=== PATIENT | male | born 1970 | race Caucasian/White ===

== ENCOUNTER → 2016-06-18 | Outpatient (REF) | payer OTHER ==
[2016-06-18 19:20] LABS: ALBUMIN 4.4 GM/DL (3.2-5.2); ALBUMIN/GLOBULIN RATIO 1.42 (1.00-1.93); BILIRUBIN,DIRECT 0.1 MG/DL (0.0-0.2); BILIRUBIN,TOTAL 0.6 MG/DL (0.2-1.0); TOTAL PROTEIN 7.5 GM/DL (6.4-8.2)
== END ==
LOC: M SFHCADAM 15:50
PROVIDERS: ATTEND Physician Assistant Medical
DX: B35.1 Tinea unguium (principal)

== ENCOUNTER → 2016-07-16 | Outpatient (REF) | payer OTHER ==
[2016-07-16 17:39] LABS: ALBUMIN 4.5 GM/DL (3.2-5.2); ALBUMIN/GLOBULIN RATIO 1.41 (1.00-1.93); BILIRUBIN,DIRECT 0.1 MG/DL (0.0-0.2); BILIRUBIN,TOTAL 0.5 MG/DL (0.2-1.0); TOTAL PROTEIN 7.7 GM/DL (6.4-8.2)
== END ==
LOC: M SFHCADAM 15:44
PROVIDERS: ATTEND Physician Assistant Medical
DX: B35.1 Tinea unguium (principal)

== ENCOUNTER 2019-12-08 20:30 | Emergency (ER) | payer OTHER ==
[~2019-12-08] VITALS: Ht 188 cm; Wt 113.6 kg
[2019-12-08 20:31] VITALS: BP 140/77
[2019-12-08] MEDS ORDERED: IBUP-1022 PO (21:27)
[2019-12-08] MEDS ORDERED: PRED20TA PO (21:27)
[2019-12-08] MEDS ORDERED: IBUPROFEN 600MG TAB PO ONE (21:30)
[2019-12-08] MEDS ORDERED: predniSONE 20 MG TAB PO ONE (21:30)
== END 2019-12-08 21:39 | disposition home or self-care (01) ==
LOC: M ED 20:30
DX: S46.911A Strain of unspecified muscle, fascia and tendon at shoulder and upper arm level, right arm, initial encounter (principal); S46.912A Strain of unspecified muscle, fascia and tendon at shoulder and upper arm level, left arm, initial encounter; X58.XXXA Exposure to other specified factors, initial encounter; Y92.9 Unspecified place or not applicable; Y99.9 Unspecified external cause status; Z79.899 Other long term (current) drug therapy; M54.16 Radiculopathy, lumbar region; Y93.9 Activity, unspecified

== ENCOUNTER → 2020-01-30 | Outpatient (REF) | payer OTHER ==
[~2020-01-30] MED LIST: GABA-843; IBUP-1022 PO; MELO15TA28; PERC5TAB12 PO; PRED20TA PO
[2020-01-30 19:22] LABS: HEMATOCRIT 41.9 % (42.0-52.0); HEMOGLOBIN 14.3 g/dl (13.5-17.5); MEAN CORPUSCULAR HEMOGLOBIN 29.5 pg (27.0-33.0); MEAN CORPUSCULAR HGB CONC 34.1 g/dl (32.0-36.5); MEAN CORPUSCULAR VOLUME 86.6 fl (80.0-96.0); PLATELET COUNT, AUTOMATED 172 10^3/uL (150-450); RED BLOOD COUNT 4.84 10^6/uL (4.30-6.10); WHITE BLOOD COUNT 6.2 10^3/uL (4.0-10.0)
[2020-01-30 19:30] LABS: ALT/SGPT 56 U/L (12-78); BILIRUBIN,TOTAL 0.8 MG/DL (0.2-1.0); BLOOD UREA NITROGEN 14 MG/DL (7-18); C REACTIVE PROTEIN QUANTITATIV 1.93 MG/DL (0.00-0.30); CALCIUM LEVEL 8.8 MG/DL (8.5-10.1); CARBON DIOXIDE LEVEL 28 MEQ/L (21-32); CHLORIDE LEVEL 105 MEQ/L (98-107); CREATININE FOR GFR 1.24 MG/DL (0.70-1.30); GLOMERULAR FILTRATION RATE > 60.0 (>56); GLUCOSE, FASTING 86 MG/DL (70-100); RHEUMATOID FACTOR QUANT < 10.0 IU/ML (<15.0); SODIUM LEVEL 138 MEQ/L (136-145); TOTAL PROTEIN 7.2 GM/DL (6.4-8.2)
[2020-02-01 20:07] LABS: ANA (HEP2) Negative (.)
== END ==
LOC: M SFHCADAM 17:49
PROVIDERS: ATTEND Family Medicine
DX: R22.9 Localized swelling, mass and lump, unspecified (principal)

== ENCOUNTER → 2020-02-19 | Outpatient (CLI) | payer OTHER ==
--- NOTE | 2020-02-19 18:35 | REPVR ---
PROCEDURE INFORMATION: Exam: MR Lumbar Spine Without Contrast. Exam date and time: 02/19/2020 5:10 PM Age: 49 years old Clinical indication: Low back pain TECHNIQUE: Imaging protocol: Multiplanar magnetic resonance images of the lumbar spine without intravenous contrast. COMPARISON: No relevant prior studies available. FINDINGS: Vertebral body heights are maintained. Degenerative disc height loss at L4-L5 and L5-S1. No abnormal marrow signal. No evidence of acute fracture. No cord compression. No abnormal cord signal. Conus medullaris terminates at the L1 level. Paravertebral soft tissues are unremarkable. L1-L2: No significant canal or foraminal narrowing. L2-L3: No significant canal or foraminal narrowing. L3-L4: No significant canal or foraminal narrowing. L4-L5: Broad-based disc bulge and facet hypertrophy cause mild canal narrowing and mild bilateral foraminal narrowing. L5-S1: Left paracentral disc extrusion causes mild canal narrowing and effacement of the left lateral recess with compression of the traversing left S1 nerve root. Along with superimposed broad-based disc bulge and facet hypertrophy there is mild left and moderate right foraminal narrowing. IMPRESSION: 1. Left paracentral disc extrusion at L5-S1 causing compression upon the traversing left S1 nerve root. Recommend surgical consultation. 2. Additional spondylotic changes of the lower lumbar spine, as detailed above. Electronically signed by: Rob Adrian On 02/19/2020 18:34:59 PM
== END ==
LOC: M RAD 15:43
PROVIDERS: ATTEND Physician Assistant Medical
DX: M51.26 Other intervertebral disc displacement, lumbar region (principal); R20.2 Paresthesia of skin; M47.816 Spondylosis without myelopathy or radiculopathy, lumbar region

== ENCOUNTER → 2020-02-26 | Outpatient (CLI) | payer OTHER | LOC: M LABSMTC 13:03 | PROVIDERS: ATTEND Anesthesiology | DX: Z01.812 Encounter for preprocedural laboratory examination (principal); Z20.828 Contact with and (suspected) exposure to other viral communicable diseases | CPT/HCPCS: C9803; U0003 ==

== ENCOUNTER 2020-02-28 09:26 | Day surgery (SDC) | payer OTHER ==
[~2020-02-28] VITALS: Ht 188 cm; Wt 112.5 kg
[~2020-02-28 09:26] MED LIST changes: +CelecoXIB 400 MG CAP PO ONE; +LR 1,000 ML IV ONE; -PERC5TAB12 PO; +PERCOCET 5MG/325MG TAB PO ONE; +ceFAZolin SOD 2 GM in IV 1 EA IV ONE
[2020-02-28] MEDS ORDERED: LIDOCAINE 2% 100MG/5ML SDV (FOR ANES.) As Ordered ONE (11:19)
[2020-02-28] MEDS ORDERED: dexameTHASONE 4 MG/ML 1ML VIAL (J1100 PER 1MG) As Ordered ONE (11:19)
[2020-02-28] MEDS ORDERED: propofoL 200 MG/20 ML VIAL As Ordered ONE (11:19)
[2020-02-28] MEDS ORDERED: ONDANSETRON 4MG/2ML VIAL As Ordered ONE (11:19)
[2020-02-28] MEDS ORDERED: ROCURONIUM BROMIDE 50 MG/5 ML VIAL As Ordered ONE ×2 (11:19→13:41)
[2020-02-28] MEDS ORDERED: REMIFENTANIL 1MG 3ML VIAL As Ordered ONE (11:20)
[2020-02-28] MEDS ORDERED: fentaNYL 100 MCG/2 ML INJECTION (J3010) As Ordered ONE (11:20)
[2020-02-28] MEDS ORDERED: MIDAZOLAM INJ 2MG/2ML VIAL (J2250 PER 1MG) As Ordered ONE (11:21)
[2020-02-28] MEDS ORDERED: BUPIVACAINE/EPIN 0.25% 30 ML VIAL As Ordered ONE (12:28)
[2020-02-28] MEDS ORDERED: BACITRACIN PWD 50,000 UNITS VIAL As Ordered ONE (12:29)
[2020-02-28] MEDS ORDERED: BUPIVACAINE LIPOSOME/PF 1.3% 20ML VIAL (13.3MG/ML)(EXPAREL)(C9290 PER1MG) As Ordered ONE (12:29)
[2020-02-28] MEDS ORDERED: BUPIVACAINE HCL 0.25% 10ML VIAL As Ordered ONE (12:29)
[2020-02-28] MEDS ORDERED: THROMBIN SOLN 20,000 UNITS KIT As Ordered ONE (12:29)
[2020-02-28] MEDS ORDERED: GLYCOPYRROLATE INJ 0.2 MG/ML 2 ML VIAL As Ordered ONE (13:26)
[2020-02-28] MEDS ORDERED: HYDROMORPHONE HCL 0.5 MG/ 0.5 ML SYRINGE (J1170 PER 1) IV PRN (15:45)
[2020-02-28] MEDS ORDERED: METOCLOPRAMIDE INJ 10MG/2ML VIAL (J2765 PER 1) IV PRN (15:45)
[2020-02-28] MEDS ORDERED: fentaNYL 100 MCG/2 ML INJECTION (J3010) IV PRN (15:45)
[2020-02-28] MEDS ORDERED: ONDANSETRON 4MG/2ML VIAL IV PRN ×2 (15:45)
[2020-02-28] MEDS ORDERED: PERCOCET 5MG/325MG TAB PO PRN (15:45)
[2020-02-28] MEDS ORDERED: LR 1,000 ML IV SCH ×2 (15:45)
[2020-02-28] MEDS ORDERED: MEPERIDINE INJ 25 MG/ML VIAL (J2175) IV PRN (15:45)
[2020-02-28] MEDS ORDERED: oxyCODONE 5MG TAB PO PRN (15:45)
[2020-02-28 16:00] VITALS: BP 136/86
[2020-02-28 16:30] VITALS: BP 138/86
[2020-02-28] MEDS ORDERED: METAMUCIL (PSYLLIUM) PACKET PO ONE (17:00)
[2020-02-28] MEDS ORDERED: ceFAZolin SOD 2 GM in IV 1 EA IV ONE (17:00)
[2020-02-28 17:30] VITALS: BP 138/84
[2020-02-28] MEDS: PERCOCET 5MG/325MG TAB PO PRN (17:57)
[2020-02-28 18:30] VITALS: BP 136/82
[2020-02-28 22:00] VITALS: BP 130/76
[2020-02-29] MEDS: PERCOCET 5MG/325MG TAB PO PRN (05:33)
[2020-02-29 06:00] VITALS: BP 129/73
[2020-02-29] MEDS ORDERED: PERC5TAB12 PO (06:51)
--- NOTE | 2020-03-02 08:34 | RO ---
DATE OF OPERATION: 02/28/2020 PREOPERATIVE DIAGNOSIS: Left lower extremity radiculopathy secondary to herniated disk at L5/S1 on the left side. POSTOPERATIVE DIAGNOSIS: Left lower extremity radiculopathy secondary to herniated disk at L5/S1 on the left side. PROCEDURE PERFORMED: Microdiskectomy, left L5/S1. SURGEON: Fernando Mallory MD REAL ESTATE VALUER: Miguel Angel Mccord, INGR[place]. ANESTHESIA: General endotracheal. ESTIMATED BLOOD LOSS: Less than 40 ml, replaced with Crystalloid. COMPLICATIONS: No complications. INDICATIONS: Intractable discomfort down the left lower extremity, MRI evidence of a large disk herniation producing significant spinal stenosis. Consent reviewed in detail with the patient, including a julia discussion with pathology involved, procedure proposed, alternatives including doing nothing and risks, including but not limited to pain, failure, instability, need for more surgery, infection, blood clots or some other problems. The patient agrees with surgery. OPERATIVE COURSE: Identified in the holding area, site and site verified, brought to the operating room. Once anesthesia was administered, positioned on the Antoine frame for exposure of the lumbar spine. Once I and the hemodialysis technician were comfortable with the patient's positioning, we then began the surgical procedure once he was prepped and draped. Next, he had a previous incision at L5/S1 for a previous decompression with neurosurgery on the contralateral side. The same incision was used. I infiltrated the incision with 25% Marcaine with epinephrine. I made the incision with a 10 blade knife, developed down through skin, subcuticular tissues. Posterior fascia was identified, reflected off of the spinous process of L5 and the dissection continued down the L5 lamina. I drilled a divot in the L5 lamina and placed a Siva An probe. A cross table lateral x-ray was taken to verify our level. Next, once this was accomplished, the microscope was sterilely draped and brought in for additional portions of the procedure, this facilitated participation of Mr. Mccord who utilized the suction Byron and other retractors. Next, I utilized the high- speed bur to implement a left unilateral laminotomy extending superiorly to the bare area of L5 inferiorly to the bare area of S1. Removed ligamentum flavum with pituitary curettes and Kerrisons. Exposed the thecal sac and traversing nerve root. Elevation of the S1 nerve root was appreciated. Siva An was utilized to sweep traversing root over the disk herniation, which had been extruded component. The extruded component was removed using Dao pituitaries. I then utilized the [place] An probe while Mr. Mccord retracted using the suction Byron to obtain additional extruded and sub- ligamentous disk material. I explored the interspace of the disk with a pituitary removing some additional material. Bipolar cautery and thrombin Gelfoam was utilized for hemostasis. Irrigation was accomplished. Retractors were removed. Wound then repaired in layered fashion. Prineo dressing applied on skin. The patient moved to hospital bed, extubated, moved to recovery room in good condition. For further details, please refer to medical record. Mr. Mccord was present and participated in the entirety of the case in the capacity of wheelchair van operator first responder. ELIEZER
--- NOTE | 2020-03-04 15:14 | REP ---
LUMBAR SPINE: SINGLE LATERAL VIEW HISTORY: Operative imaging. Left L5-S1 herniated disc. FINDINGS: A single cross-table lateral portably obtained radiograph of the lumbar spine time stamped [id number] p.m. documents an operative probe at the dorsal aspect of the spinal canal at the L5-S1 disc level. MTDD
== END 2020-02-29 10:35 | disposition home or self-care (01) ==
LOC: M SDC 09:26 → M MS5PR 16:00 → M SDC 02-29 10:35
PROVIDERS: ATTEND Orthopaedic Surgery
DX: M51.27 Other intervertebral disc displacement, lumbosacral region (principal); Z79.899 Other long term (current) drug therapy
CPT/HCPCS: 36415; 63030; 72100; 86850; 86900; 86901; 88304; 96361; 96365; C9290; J0690; J1100; J2250; J2405; J3010

== ENCOUNTER → 2020-04-30 | Outpatient (REF) | payer OTHER ==
[~2020-04-30] MED LIST changes: -CelecoXIB 400 MG CAP PO ONE; -LR 1,000 ML IV ONE; +PERC5TAB12 PO; -PERCOCET 5MG/325MG TAB PO ONE; -ceFAZolin SOD 2 GM in IV 1 EA IV ONE
[2020-04-30 13:15] LABS: BASO % 0.3 % (0.0-1.0); EOS # 0.2 10^3/uL (0.0-0.5); EOS % 3.4 % (0.0-3.0); HEMATOCRIT 45.9 % (42.0-52.0); HEMOGLOBIN 15.4 g/dl (13.5-17.5); LYMPH # 1.8 10^3/uL (1.5-5.0); LYMPH % 25.2 % (24.0-44.0); MEAN CORPUSCULAR HEMOGLOBIN 28.7 pg (27.0-33.0); MEAN CORPUSCULAR HGB CONC 33.6 g/dl (32.0-36.5); MEAN CORPUSCULAR VOLUME 85.6 fl (80.0-96.0); MONO # 0.6 10^3/uL (0.0-0.8); MONO % 7.8 % (0.0-5.0); NEUTROPHILS # 4.5 10^3/uL (1.5-8.5); NEUTROPHILS % 62.9 % (36.0-66.0); PLATELET COUNT, AUTOMATED 203 10^3/uL (150-450); RED BLOOD COUNT 5.36 10^6/uL (4.30-6.10); WHITE BLOOD COUNT 7.1 10^3/uL (4.0-10.0)
[2020-04-30 13:47] LABS: ERYTHROCYTE SEDIMENTATION RATE 2 mm/hr (0-20)
== END ==
LOC: M SFHCADAM 08:06
PROVIDERS: ATTEND Physician Assistant Medical
DX: L52 Erythema nodosum (principal)

== ENCOUNTER → 2020-05-26 | Outpatient (CLI) | payer OTHER ==
--- NOTE | 2020-05-26 16:38 | REP ---
INDICATION: PAIN IN BOTH ARMS. COMPARISON: None. TECHNIQUE: Eight views. FINDINGS: Lateral views done in flexion, extension, and neutral position show preserved vertebral body heights and normal alignment. No subluxation or instability is seen. There is discogenic spurring anteriorly at the C4-5 disc level. Open mouth odontoid and AP views are unremarkable. Bilateral oblique radiographs demonstrate minimal left-sided uncovertebral spurring at C3-4. There is also minimal in the uncovertebral spurring on the right at C6-7. Neural foramina appear adequate bilaterally at each level however. Facets are normally aligned. No bony destructive lesion is seen. IMPRESSION: Mild degenerative spondylosis changes as above. No acute bony abnormality. <Electronically signed by Sae Cortez > 05/26/20 [id number]
== END ==
LOC: M ADAMS 16:15
PROVIDERS: ATTEND Physician Assistant Medical
DX: M25.78 Osteophyte, vertebrae (principal); M79.601 Pain in right arm; M79.602 Pain in left arm

== ENCOUNTER → 2020-07-29 | Outpatient (CLI) | payer OTHER ==
[~2020-07-29] MED LIST changes: +GABA-282; -GABA-843
[2020-07-29 14:37] LABS: RHEUMATOID FACTOR QUANT < 10.0 IU/ML (<15.0); TOTAL PROTEIN 7.4 GM/DL (6.4-8.2)
[2020-07-30 12:48] LABS: ALBUMIN 4.87 GM/DL (3.29-5.55); ALBUMIN % 65.8 % (55.8-66.1); ALPHA-1-GLOBULIN % 3.2 % (2.9-4.9); ALPHA-1-GLOBULINS 0.24 GM/DL (0.17-0.41); ALPHA-2-GLOBULINS 0.51 GM/DL (0.42-0.99); ALPHA-2-GLOBULINS % 6.9 % (7.1-11.8); BETA-1-GLOBULINS % 5.4 % (4.7-7.2); BETA-2-GLOBULINS 0.34 GM/DL (0.19-0.55); BETA-2-GLOBULINS % 4.6 % (3.2-6.5); GAMMA GLOBULIN % 14.1 % (11.1-18.8); GAMMA GLOBULINS 1.04 GM/DL (0.65-1.58)
[2020-07-30 13:11] LABS: ANTINUCLEAR ANTIBODIES DIRECT Negative (Negative)
== END ==
LOC: M PLALAB 10:57
PROVIDERS: ATTEND Psychiatry & Neurology Neurology
DX: M54.2 Cervicalgia (principal); M54.5 Low back pain

== ENCOUNTER 2022-10-13 13:28 | Emergency (ER) | payer OTHER ==
[~2022-10-13] VITALS: Ht 188 cm; Wt 120.0 kg
[2022-10-13] MEDS ORDERED: ISOVUE-370 76% 100ML VIAL As Ordered ONE (13:38)
[2022-10-13 14:48] LABS: BASO # 0.1 10^3/uL (0.0-0.2); BASO % 0.7 % (0.0-1.0); EOS # 0.2 10^3/uL (0.0-0.5); HEMATOCRIT 42.8 % (42.0-52.0); HEMOGLOBIN 15.6 g/dl (13.5-17.5); LYMPH # 2.2 10^3/uL (1.5-5.0); LYMPH % 33.4 % (24.0-44.0); MEAN CORPUSCULAR HEMOGLOBIN 30.8 pg (27.0-33.0); MEAN CORPUSCULAR HGB CONC 36.4 g/dl (32.0-36.5); MEAN CORPUSCULAR VOLUME 84.4 fl (80.0-96.0); MONO # 0.5 10^3/uL (0.0-0.8); MONO % 8.1 % (2.0-8.0); NEUTROPHILS # 3.6 10^3/uL (1.5-8.5); NEUTROPHILS % 54.4 % (36.0-66.0); PLATELET COUNT, AUTOMATED 166 10^3/uL (150-450); RED BLOOD COUNT 5.07 10^6/uL (4.30-6.10); WHITE BLOOD COUNT 6.7 10^3/uL (4.0-10.0)
[2022-10-13 14:58] LABS: PROTHROMBIN TIME 13.4 SECONDS (12.5-14.5)
[2022-10-13 14:59] LABS: PARTIAL THROMBOPLASTIN TIME 28.7 SECONDS (24.8-34.2)
[2022-10-13 15:23] LABS: CK-MB VALUE MASS 2.7 NG/ML (<3.6)
[2022-10-13 15:24] LABS: ETHYL ALCOHOL (ETHANOL) < 0.003 % (0.000-0.010)
[2022-10-13 15:26] LABS: ALBUMIN 4.2 G/DL (3.2-5.2); ALKALINE PHOSPHATASE 50 U/L (46-116); ALT/SGPT 115 U/L (7.0-40); AST/SGOT 51 U/L (<34); BILIRUBIN,DIRECT 0.3 MG/DL (<0.4); BLOOD UREA NITROGEN 16 MG/DL (9-23); CALCIUM LEVEL 8.9 MG/DL (8.5-10.1); CARBON DIOXIDE LEVEL 27 MMOL/L (20-31); CHLORIDE LEVEL 104 MMOL/L (98-107); CREATININE FOR GFR 1.24 MG/DL (0.70-1.30); GLOMERULAR FILTRATION RATE > 60.0 (>56); GLUCOSE, FASTING 73 MG/DL (60-100); POTASSIUM SERUM 3.9 MMOL/L (3.5-5.1); SODIUM LEVEL 138 MMOL/L (136-145); TOTAL PROTEIN 6.9 G/DL (5.7-8.2)
[2022-10-13 15:26] LABS: RSV AMPLIFICATION NEGATIVE (NEGATIVE)
[2022-10-13 15:30] LABS: CPK CREATINE PHOSPHOKINASE 384 U/L (46-171)
[2022-10-13 17:40] LABS: AMPHETAMINES LEVEL URINE NEGATIVE (NEGATIVE); BARBITURATES URINE NEGATIVE (NEGATIVE); BENZODIAZEPINES URINE NEGATIVE (NEGATIVE); CANNABINOIDS URINE NEGATIVE (NEGATIVE); COCAINE METABOLITE URINE NEGATIVE (NEGATIVE); METHADONE URINE NEGATIVE (NEGATIVE); OPIATES URINE NEGATIVE (NEGATIVE); PHENCYCLIDINE URINE NEGATIVE (NEGATIVE)
[2022-10-13] MEDS ORDERED: PROHANCE 279.3MG/ML 5ML VIAL As Ordered ONE (18:39)
[2022-10-13] MEDS ORDERED: PROHANCE 279.3MG/ML 15ML VIAL As Ordered ONE (18:39)
[2022-10-13 20:17] VITALS: BP 135/80
[2022-10-13] MEDS ORDERED: AMIT10TA7 PO (22:00)
== END 2022-10-13 22:15 | disposition home or self-care (01) ==
LOC: M ED 13:28
DX: R41.0 Disorientation, unspecified (principal); E78.5 Hyperlipidemia, unspecified; Z87.891 Personal history of nicotine dependence; Z79.891 Long term (current) use of opiate analgesic; Z79.899 Other long term (current) drug therapy
CPT/HCPCS: 36415; 70450; 70496; 70498; 70553; 71045; 80047; 80048; 80076; 80307; 82077; 82550; 82553; 84484; 85025; 85610; 85730; 87631; 93005; 93041; 94760; 99285; A9576; Q9967

== ENCOUNTER → 2023-11-09 | Outpatient (REF) | payer OTHER ==
[~2023-11-09] MED LIST changes: +AMIT10TA7 PO
[2023-11-09 15:06] LABS: ALBUMIN 4.5 G/DL (3.2-5.2); ALKALINE PHOSPHATASE 60 U/L (46-116); ALT/SGPT 55 U/L (7.0-40); AST/SGOT 26 U/L (<34); BASO # 0.1 10^3/uL (0.0-0.2); BILIRUBIN,TOTAL 1.1 MG/DL (0.3-1.2); BLOOD UREA NITROGEN 14 MG/DL (9-23); CALCIUM LEVEL 9.8 MG/DL (8.5-10.1); CARBON DIOXIDE LEVEL 31 MMOL/L (20-31); CHLORIDE LEVEL 103 MMOL/L (98-107); CHOLESTEROL LEVEL 232 MG/DL (<200); CREATININE FOR GFR 1.26 MG/DL (0.70-1.30); EOS # 0.2 10^3/uL (0.0-0.5); EOS % 2.8 % (0.0-3.0); GLOMERULAR FILTRATION RATE > 60.0 (>56); GLUCOSE, FASTING 82 MG/DL (60-100); HEMATOCRIT 45.8 % (42.0-52.0); HEMOGLOBIN 16.2 g/dl (13.5-17.5); LDL CHOLESTEROL 159.8 MG/DL (<100); LYMPH # 2.3 10^3/uL (1.5-5.0); LYMPH % 31.9 % (24.0-44.0); MEAN CORPUSCULAR HEMOGLOBIN 31.6 pg (27.0-33.0); MEAN CORPUSCULAR HGB CONC 35.4 g/dl (32.0-36.5); MEAN CORPUSCULAR VOLUME 89.3 fl (80.0-96.0); MONO # 0.5 10^3/uL (0.0-0.8); MONO % 7.3 % (2.0-8.0); NEUTROPHILS # 4.1 10^3/uL (1.5-8.5); NEUTROPHILS % 56.7 % (36.0-66.0); PLATELET COUNT, AUTOMATED 193 10^3/uL (150-450); POTASSIUM SERUM 4.2 MMOL/L (3.5-5.1); RED BLOOD COUNT 5.13 10^6/uL (4.30-6.10); SODIUM LEVEL 137 MMOL/L (136-145); TOTAL PROTEIN 7.4 G/DL (5.7-8.2); TRIGLYCERIDES LEVEL 161 MG/DL (<150); WHITE BLOOD COUNT 7.1 10^3/uL (4.0-10.0)
[2023-11-09 15:08] LABS: THYROID STIMULATING HORMONE 2.921 uIU/ML (0.55-4.78); TOTAL 25(OH) VITAMIN D 26.4 NG/ML (20.0-100.0)
== END ==
LOC: M SFHCADAM 09:37
PROVIDERS: ATTEND Physician Assistant Medical
DX: R79.89 Other specified abnormal findings of blood chemistry (principal); E78.2 Mixed hyperlipidemia; E66.01 Morbid (severe) obesity due to excess calories; I10 Essential (primary) hypertension

== ENCOUNTER 2023-12-29 07:40 | Day surgery (SDC) | payer OTHER ==
[~2023-12-29] VITALS: Ht 188 cm; Wt 113.7 kg
[2023-12-29] MEDS: NS 1,000 ML IV ONE (08:00)
[2023-12-29] MEDS ORDERED: LIDOCAINE 2% 100MG/5ML SDV (FOR ANES.) As Ordered ONE (08:39)
[2023-12-29] MEDS ORDERED: propofoL 200 MG/20 ML VIAL As Ordered ONE (08:39)
[2023-12-29 09:00] VITALS: TEMP 97.8
[2023-12-29 09:15] VITALS: BP 141/85; O2SAT 97
== END 2023-12-29 09:22 | disposition home or self-care (01) ==
LOC: M OPP 07:40
PROVIDERS: ATTEND Surgery
DX: Z12.11 Encounter for screening for malignant neoplasm of colon (principal); Z86.010 Personal history of colon polyps; D12.1 Benign neoplasm of appendix; K64.0 First degree hemorrhoids; Z87.891 Personal history of nicotine dependence

== ENCOUNTER 2024-02-16 05:56 | Day surgery (SDC) | payer OTHER ==
[~2024-02-16] VITALS: Ht 188 cm; Wt 111.7 kg
[2024-02-16] MEDS ORDERED: propofoL 200 MG/20 ML VIAL As Ordered ONE (06:49)
[2024-02-16] MEDS ORDERED: ROCURONIUM BROMIDE 50MG/5ML VIAL As Ordered ONE (06:50)
[2024-02-16] MEDS ORDERED: LIDOCAINE 2% 100MG/5ML SDV (FOR ANES.) As Ordered ONE (06:50)
[2024-02-16] MEDS ORDERED: dexmedeTOMIDine (4MCG/ML)200MCG/50ML BTL (PRECEDEX) As Ordered ONE (06:52)
[2024-02-16] MEDS ORDERED: ONDANSETRON 4MG 2ML VIAL As Ordered ONE (06:52)
[2024-02-16] MEDS ORDERED: MIDAZOLAM INJ 2MG/2ML VIAL As Ordered ONE (06:55)
[2024-02-16] MEDS ORDERED: fentaNYL 100 MCG/2 ML INJECTION As Ordered ONE (06:56)
[2024-02-16] MEDS ORDERED: VASOPRESSIN INJ 20UNITS/ML 1ML VIAL As Ordered ONE (06:59)
[2024-02-16] MEDS ORDERED: LR 1,000 ML IV SCH ×2 (07:00→08:40)
[2024-02-16] MEDS: metroNIDAZOLE 500 MG in IV 1 EA IV ONE (07:28)
[2024-02-16] MEDS: ceFAZolin SOD 2 GM in IV 1 EA IV ONE (07:29)
[2024-02-16] MEDS ORDERED: ePHEDrine SULFATE 25 MG/5 ML(5MG/ML) SYRINGE As Ordered ONE (07:44)
[2024-02-16] MEDS ORDERED: HYDROmorphone HCL 2MG/ML 1ML VIAL As Ordered ONE (08:03)
[2024-02-16] MEDS ORDERED: SUGAMMADEX SODIUM 500 MG/5 ML VIAL (BRIDION) As Ordered ONE (08:19)
[2024-02-16] MEDS ORDERED: ONDANSETRON 4MG 2ML VIAL IV PRN (08:40)
[2024-02-16] MEDS ORDERED: HYDROMORPHONE HCL 0.5 MG/ 0.5 ML SYRINGE IV PRN (08:40)
[2024-02-16] MEDS ORDERED: fentaNYL 100 MCG/2 ML INJECTION IV PRN (08:40)
[2024-02-16] MEDS ORDERED: oxyCODONE 5MG TAB PO PRN (08:40)
[2024-02-16] MEDS ORDERED: NORCO, ANEXSIA 5/325MG TABLET (HYDROcodone/ACETAMINOPHEN) PO PRN (08:50)
[2024-02-16 10:01] VITALS: BP 131/70; TEMP 95.9; O2SAT 95
== END 2024-02-16 10:06 | disposition home or self-care (01) ==
LOC: M SDC 05:56
PROVIDERS: ATTEND Surgery
DX: D12.2 Benign neoplasm of ascending colon (principal); E78.5 Hyperlipidemia, unspecified; E66.01 Morbid (severe) obesity due to excess calories; K21.9 Gastro-esophageal reflux disease without esophagitis
CPT/HCPCS: 44205; 88307; J0665; J0690; J1100; J1170; J1836; J2250; J2405; J2598; J3010; S2900

== ENCOUNTER → 2024-12-10 | Outpatient (CLI) | payer OTHER ==
[~2024-12-10] MED LIST changes: +AMIT10TA11 PO; -AMIT10TA7 PO; +GABA-1172; -GABA-282
== END ==
LOC: M RAD 10:05
PROVIDERS: ATTEND Physician Assistant Medical
DX: R79.89 Other specified abnormal findings of blood chemistry (principal); N18.1 Chronic kidney disease, stage 1